=== PATIENT | female | born 1955 | race Caucasian/White ===

== ENCOUNTER 2022-03-31 09:07 | Outpatient (REF) | payer MEDICARE, OTHER, SELFPAY ==
--- NOTE | ~2022-03-31 | US_ITS ---
EXAMINATION: US ABDOMEN COMPLETE CLINICAL INFORMATION: Elevated LFTs. COMPARISON: None TECHNIQUE: Real-time imaging of the abdominal viscera. Technically difficult study secondary to bowel gas and body habitus. FINDINGS: PANCREAS: The head and the body of the pancreas is homogeneous. The tail is obscured by overlying gas. ABDOMINAL AORTA: The proximal and distal abdominal aorta are of normal caliber. The mid segment is not visualized. INFERIOR VENA CAVA: Not visualized LIVER: The liver is normal in size. The liver contour is normal. There is increased liver echogenicity. No focal hepatic lesion. There is no intrahepatic biliary duct dilatation seen. GALLBLADDER: The fundus is obscured by overlying gas. The gallbladder is physiologically distended without evidence of stones, sludge, polyps, wall thickening or pericholecystic fluid. COMMON BILE DUCT: Normal in caliber measuring 0.6 cm in diameter. RIGHT KIDNEY: There are 2 anechoic cysts measuring 1.6 x 1.0 x 1.3 cm midpole and 1.3 x 1.3 1.2 cm in lower pole. No hydronephrosis or renal calculi. The kidney measures 11.5 cm in maximum dimension. LEFT KIDNEY: There is anechoic cyst midpole measuring 1.0 x 1.1 x 1.3 cm. No hydronephrosis or renal calculi. The kidney measures 11.2 cm in maximum dimension. SPLEEN: Normal. The spleen measures 9.8 cm in maximum dimension. FREE FLUID: None. US/US abdomen complete IMPRESSION: 1. Bilateral renal cysts. No echogenic stones or hydronephrosis. 2. Mild hepatic steatosis without focal lesion
== END 2022-03-31 09:08 | disposition home or self-care (01) ==
LOC: HO.US 09:07
PROVIDERS: Visit Provider Internal Medicine Gastroenterology
DX: R79.89 Other specified abnormal findings of blood chemistry (principal)
CPT/HCPCS: 76700